=== PATIENT | male | born 1945 | race African-American/Black ===

== ENCOUNTER 2016-04-26 13:51 | Emergency (ER) | payer MEDICARE, MEDICAID ==
[~2016-04-26] VITALS: Ht 170.2 cm; Wt 77.0 kg
[2016-04-26] MEDS ORDERED: KETOROLAC 60MG/2ML VIAL IM ONE (14:45)
[2016-04-26 15:04] VITALS: BP 118/91
== END 2016-04-26 16:54 | disposition home or self-care (01) ==
LOC: ER 16:28
DX: S13.9XXA Sprain of joints and ligaments of unspecified parts of neck, initial encounter (principal); S39.012A Strain of muscle, fascia and tendon of lower back, initial encounter; S46.911A Strain of unspecified muscle, fascia and tendon at shoulder and upper arm level, right arm, initial encounter; V49.59XA Passenger injured in collision with other motor vehicles in traffic accident, initial encounter; I10 Essential (primary) hypertension; Y93.89 Activity, other specified; Y92.414 Local residential or business street as the place of occurrence of the external cause; J44.9 Chronic obstructive pulmonary disease, unspecified; Z85.46 Personal history of malignant neoplasm of prostate
CPT/HCPCS: 96372; 99283; J1885